=== PATIENT | male | born 1955 | race Caucasian/White ===

== ENCOUNTER → 2016-12-08 | Outpatient (CLI) | payer BC | END | disposition home or self-care (01) | CPT/HCPCS: 94060; 94726; 94729 ==

== ENCOUNTER 2016-12-29 17:32 | Emergency (ER) | payer BC ==
--- NOTE | 2016-12-29 17:44 | ED ---
Recheck HPI - General Chief Complaint: Recheck/Abnormal Lab/Rx Stated Complaint: Fb in throat Time Seen by Provider: 12/29/16 17:39 Source: patient, family, RN notes reviewed Mode of arrival: ambulatory Limitations: no limitations - History of Present Illness Initial Comments: Is a 61-year-old male with a prior history of difficulty swallowing he states he was eating a salad sandwich with liverwurst when something is stuck in his throat. He denies any trouble swallowing this time he states he can't clear anything. He is having no trouble breathing is talking without difficulty. He feels like his stomach at the top of his esophagus. MD Complaint: other - Related Data Home Medications Medication Instructions Recorded Confirmed Aspirin 81 mg PO DAILY 06/15/14 12/29/16 Lovastatin [Mevacor] 40 mg PO HS 06/15/14 12/29/16 Nitroglycerin Sl Tabs [Nitrostat] 0.4 mg SL Q5M PRN 06/15/14 12/29/16 metFORMIN HCL [Glucophage] 1,000 mg PO BID 06/15/14 12/29/16 Albuterol Sulfate [Proair Hfa] 1 - 2 puff INHALATION RT-Q6H PRN 12/29/16 Benzonatate [Tessalon Perles] 100 mg PO TID 12/29/16 12/29/16 Insulin Glargine,Hum.rec.anlog 10 unit SQ HS 12/29/16 12/29/16 [Toujeo Solostar] Losartan [Cozaar] 50 mg PO DAILY 12/29/16 12/29/16 Montelukast [Singulair] 10 mg PO HS 12/29/16 12/29/16 Sub-Q Insulin Device, 40 Unit [Vgo 1 dose SQ CONTINUOUS 12/29/16 12/29/16 40] Umeclidinium Brm/Vilanterol Tr 1 puff INHALATION RT-DAILY 12/29/16 12/29/16 [Anoro Ellipta 62.5-25 Mcg INH] Allergies Allergy/AdvReac Type Severity Reaction Status Date / Time adhesive Allergy Rash/Hives Verified 12/29/16 17:57 latex Allergy Unknown Verified 12/29/16 17:57 shellfish derived Allergy Rash/Hives Verified 12/29/16 17:57 Review of Systems ROS Statement: Those systems with pertinent positive or pertinent negative responses have been documented in the HPI. ROS Other: All systems not noted in ROS Statement are negative. Past Medical History Past Medical History: Chest Pain / Angina, Diabetes Mellitus, GERD/Reflux, GI Bleed, Hyperlipidemia, Hypertension, Myocardial Infarction ([place]), Musculoskeletal Disorder, Osteoarthritis (OA), Prostate Disorder, Thyroid Disorder Additional Past Medical History / Comment(s): Pt arrived by car with family to [facility] ER for c/o L sided chest pain-stabbing which is worse with movement and deep breath. Pt also had mild SOB. 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 STATES HAS HEMORRHOIDS-. INJURED RT SHOULDER AT WORK-still getting worked up for this problem. Last Myocardial Infarction Date:: 11/14/14 History of Any Multi-Drug Resistant Organisms: None Reported Past Surgical History: Heart Catheterization, Hernia Repair, Orthopedic Surgery Additional Past Surgical History / Comment(s): LEFT SHOULDER SURGERY, R shoulder arthroscopic, L groin surgery by dr. Cedeño 09/11. COLONOSCOPY. EGD. HEART CATH 07/07/2013-"normal" Past Anesthesia/Blood Transfusion Reactions: No Reported Reaction Additional Past Anesthesia/Blood Transfusion Reaction / Comment(s): Pt has never recieved blood. Past Psychological History: No Psychological Hx Reported Additional Psychological History / Comment(s): Pt lives at home with spouse. Pt lives in single level home. Pt is on workman comp for a R shoulder injury but still does light work 40 hrs a week. Pt drives a truck. He is normally is independent. Smoking Status: Former smoker Past Alcohol Use History: Occasional Past Drug Use History: None Reported - Past Family History Mother Family Medical History: Cancer Additional Family Medical History / Comment(s): LUNG CA Father Family Medical History: Cancer Additional Family Medical History / Comment(s): LUNG CA General Exam - General Exam Comments Initial Comments: This is a well-developed well-nourished awake alert oriented times 3 male Limitations: no limitations General appearance: anxious Head exam: Present: atraumatic, normocephalic, normal inspection Eye exam: Present: normal appearance, PERRL, EOMI. Absent: scleral icterus, conjunctival injection, periorbital swelling ENT exam: Present: normal exam, mucous membranes moist Neck exam: Present: normal inspection, other (No stridor JVD or bruits). Absent : tenderness, meningismus, lymphadenopathy Respiratory exam: Present: normal lung sounds bilaterally. Absent: respiratory distress, wheezes, rales, rhonchi, stridor Cardiovascular Exam: Present: regular rate, normal rhythm, normal heart sounds. Absent: systolic murmur, diastolic murmur, rubs, gallop, clicks GI/Abdominal exam: Present: soft, normal bowel sounds. Absent: distended, tenderness, guarding, rebound, rigid Extremities exam: Present: normal inspection, full ROM, normal capillary refill. Absent: tenderness, pedal edema, joint swelling, calf tenderness Back exam: Present: normal inspection Neurological exam: Present: alert, oriented X3, CN II-XII intact Psychiatric exam: Present: normal affect, normal mood Skin exam: Present: warm, dry, intact, normal color. Absent: rash Course Vital Signs 12/29/16 17:35 Temperature 97.9 F Pulse Rate 101 H Respiratory 18 Rate Blood Pressure 150/79 O2 Sat by Pulse 96 Oximetry - Reevaluation(s) Reevaluation #1: 12/29/16 18:24 Patient initially stated he had some relief after drinking hot water just before taking a GI cocktail he later then stated he felt like he still had something in his throat after becoming supine. Medical Decision Making - Medical Decision Making Patient started feeling better he did gargle some salt water he did expel whatever was causing the problem he feels about back to normal he will be discharged with follow-up with his doctor and return when necessary Disposition Clinical Impression: Foreign body in throat Disposition: HOME SELF-CARE Condition: Good Instructions: Foreign Body in Pharynx (ED)
[2016-12-29] MEDS ORDERED: MAG HYDROX/AL HYDROX/SIMETH 30 ML, HYOSCYAMINE ELIXIR 10 ML, CIMETIDINE HCL 300 MG, LID... PO STA ×4 (17:45)
[2016-12-29] MEDS ORDERED: METOCLOPRAMIDE 5 MG/ML 2 ML VIAL IVP STA (18:22)
[2016-12-29] MEDS ORDERED: SODIUM CHLORIDE 0.9% 1,000 ML IV STA (18:23)
[2016-12-29] MEDS ORDERED: GLUCAGON 1 MG/ML VIAL IVP STA (18:23)
[2016-12-29 19:18] VITALS: BP 153/74; PULSE 89; RESP 20; TEMP 98.5
== END 2016-12-29 19:20 | disposition home or self-care (01) ==
LOC: EC 17:32
DX: T17.228A Food in pharynx causing other injury, initial encounter (principal); E07.9 Disorder of thyroid, unspecified; I10 Essential (primary) hypertension; E78.5 Hyperlipidemia, unspecified; K21.9 Gastro-esophageal reflux disease without esophagitis; E11.9 Type 2 diabetes mellitus without complications; I25.2 Old myocardial infarction; Z98.61 Coronary angioplasty status; Z87.891 Personal history of nicotine dependence; Z79.82 Long term (current) use of aspirin; Z79.4 Long term (current) use of insulin; Z79.84 Long term (current) use of oral hypoglycemic drugs; Z79.51 Long term (current) use of inhaled steroids; Z79.899 Other long term (current) drug therapy; Z91.040 Latex allergy status
CPT/HCPCS: 99283

== ENCOUNTER → 2017-02-08 | Outpatient (CLI) | payer BC ==
--- NOTE | 2017-02-08 10:17 | FL ---
Barium swallow HISTORY: Dysphagia 1 minute 30 seconds fluoroscopy time Correlation to prior barium swallow 28 September 2016 Patient was given high density barium to drink. FINDINGS: Swallowing mechanism is normal. No abnormal collections of contrast evident. There is no ob struction to flow. No evident aspiration. No hiatal hernia. Gastroesophageal reflux is not evident du ring the course of the exam. IMPRESSION: No abnormality evident to account for patient's symptoms. Consider direct visualization, contrast enhanced neck CT for better evaluation
== END | disposition home or self-care (01) ==
LOC: RADFLWHC 09:14
PROVIDERS: ATTEND Otolaryngology
DX: R13.10 Dysphagia, unspecified (principal)
CPT/HCPCS: 74220

== ENCOUNTER → 2017-02-12 | Outpatient (CLI) | payer BC ==
[2017-02-12 16:25] LABS: Blood Urea Nitrogen 19 mg/dL (9-20); Non-African American GFR(MDRD) >60 (>60 ml/min/1.73 sqM)
--- NOTE | 2017-02-12 17:09 | CT ---
EXAMINATION TYPE: CT soft tissue neck wo/w con DATE OF EXAM: 02/12/2017 4:59 PM COMPARISON: Barium swallow 08 February 2017 HISTORY: Dysphagia x [address] DLP: 1033.80 mGycm Automated exposure control for dose reduction was used. CONTRAST: CT scan of the neck is performed following without and with IV Contrast, patient injected with 100 mL of Omnipaque 300. Axial images are obtained, coronal and sagittal reformatted images are reviewed. FINDINGS: Airway: No gross abnormality seen. Parotid/submandibular glands: No gross abnormality seen. Carotid/Vascular Structures: Unremarkable Osseous Structures: Degenerative disc changes are present within the visualized spine, spurring at th e C4-5, C5-6 and C6-7 levels causes minimal posterior impression on the cervical esophagus Other: No evident adenopathy. IMPRESSION: No abnormality evident to account for patient's symptoms.
== END ==
LOC: RADCTMAIN 15:40
PROVIDERS: ATTEND Otolaryngology
DX: R13.10 Dysphagia, unspecified (principal)
CPT/HCPCS: 82565; 84520; 70492; 36415; Q9967

== ENCOUNTER 2017-02-25 09:09 | Day surgery (SDC) | payer BC ==
[2017-02-22 12:16] VITALS: BMI 36.9
[~2017-02-25 09:09] MED LIST: LACTATED RINGERS 1,000 ML IV SCH
[2017-02-25 09:39] VITALS: TEMP 99
[2017-02-25] MEDS ORDERED: LACTATED RINGERS 1,000 ML IV ONE (09:54)
[2017-02-25] MEDS ORDERED: LIDOCAINE 1% 20 ML VIAL (10MG/ML) FOR IV START INTRADERMA ONE (09:55)
[2017-02-25] MEDS ORDERED: INSULIN LISPRO (humaLOG) 300 UNIT/3 ML VIAL SQ ONE (09:55)
[2017-02-25 09:58] LABS: Glucose,Whole Blood 268 mg/dL (75-99)
[2017-02-25] MEDS ORDERED: GLYCOPYRROLATE 0.2 MG/ML 2 ML VIAL ONE (10:05)
[2017-02-25] MEDS ORDERED: LIDOCAINE 1% INJ 10MG/ML (20 ML MDV) ONE (10:05)
[2017-02-25] MEDS ORDERED: PROPOFOL 10 MG/ML 20 ML VIAL IV ONE (10:05)
[2017-02-25] MEDS ORDERED: MIDAZOLAM 2 MG/2 ML VIAL ONE (10:05)
--- NOTE | 2017-02-25 10:29 | P.PCN ---
Date of Procedure: 02/25/17 Procedure(s) Performed: BRIEF HISTORY: Patient is a 61-year-old, pleasant, white male, scheduled for an upper endoscopy as part of evaluation of dysphagia to solids for the last 3 months duration. He often feels dysphagia in his throat area with solids and occasionally with soft diet also. She saw ENT physician and so far workup was negative according to the patient isn't scheduled for an upper endoscopy to rule out any esophageal stricture. PROCEDURE PERFORMED: Esophagogastroduodenoscopy with biopsy. PREOPERATIVE DIAGNOSIS: Dysphagia of 3 months duration. IV sedation per anesthesia. PROCEDURE: After informed consent was obtained, the patient was brought into the endoscopy unit. IV conscious sedation was administered by Anesthesia under continuous monitoring. Initially the Olympus GIF-140 video endoscope was inserted into the mouth. Esophagus intubated without any difficulty. It was gradually advanced into the stomach and duodenum and carefully examined. The bulb and the second part of the duodenum appeared normal. The scope at this time was withdrawn to the stomach, adequately insufflated with air, and upon careful examination, mucosa of the antrum, had mild gastritis and biopsies were done from this area. The body, cardia and the fundus appeared normal. The scope was then withdrawn into the esophagus. The GE junction was located at 39 cm from the incisors. The esophagus appeared normal. No evidence of esophageal stricture noted. Biopsies were done from the distal esophagus to rule out microscopic/eosinophilic esophagitis There were no erosions or ulcerations seen. The proximal cervical esophagus was carefully examined and no obvious stricture identified and the patient tolerated the procedure well. IMPRESSION: 1. Normal-appearing esophagus with no evidence of esophagitis, esophageal stricture. 2. Mild antral gastritis. RECOMMENDATIONS: The findings of this examination were discussed with the patient as well as his family. He was advised to follow with the biopsy results. He will continue with Nexium 40 mg daily and follow antireflux measures.
[2017-02-25 10:32] LABS: Glucose,Whole Blood 229 mg/dL (75-99)
[2017-02-25 11:03] VITALS: BP 137/85; PULSE 77; RESP 18
== END 2017-02-25 11:16 | disposition home or self-care (01) ==
LOC: ORWHC2ENDO 09:09
PROVIDERS: ATTEND Internal Medicine Gastroenterology
DX: K21.0 Gastro-esophageal reflux disease with esophagitis (principal); R13.10 Dysphagia, unspecified; K29.50 Unspecified chronic gastritis without bleeding; I10 Essential (primary) hypertension; E78.5 Hyperlipidemia, unspecified; J45.909 Unspecified asthma, uncomplicated; J44.9 Chronic obstructive pulmonary disease, unspecified; E11.9 Type 2 diabetes mellitus without complications; E07.9 Disorder of thyroid, unspecified; I25.2 Old myocardial infarction; Z87.891 Personal history of nicotine dependence; Z79.84 Long term (current) use of oral hypoglycemic drugs; Z79.4 Long term (current) use of insulin; Z79.899 Other long term (current) drug therapy
CPT/HCPCS: 88305; 88342; 43239; J2250; J2001; J2704

== ENCOUNTER → 2018-07-25 | Outpatient (CLI) | payer MEDICARE ==
--- NOTE | 2018-07-25 08:38 | CT ---
EXAMINATION TYPE: CT sinus wo con DATE OF EXAM: 07/25/2018 COMPARISON: 09/18/2016 HISTORY: 62-year-old male chronic sinus drainage. CT DLP: 667 mGycm Automated exposure control for dose reduction was used. TECHNIQUE: Noncontrast axial views of the paranasal sinuses were obtained. Coronal reconstructions pe rformed. FINDINGS: PARANASAL SINUSES: The bilateral maxillary sinuses and bilateral sphenoid sinuses are slightly small. Frontal sinuses ar e hypoplastic. There is mild mucosal thickening throughout the ethmoid air cells and bilateral maxill xiang sinuses. There is no air-fluid level. Reactive niyah- osteogenesis is not seen. There is no destruction of the osseous land of the paranasal sinuses. THE NASAL CAVITY: The osteomeatal complexes are patent. There is an undulating nasal septum. The imaged brain and orbits are normal in appearance. Small amount of trapped fluid in the inferior right mastoid air cells, questionable clinical signific ance. Correlate for any mastoid pain to exclude the possibility of mastoiditis. Reformatted images confirm above findings. IMPRESSION: 1. Similar small appearance to the bilateral maxillary and sphenoid sinuses, likely developmental. 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 2. Mild chronic ethmoid and maxillary sinus disease. 3. Undulating nasal septum.
--- NOTE | 2018-07-25 10:14 | XR ---
EXAMINATION TYPE: XR chest 2V DATE OF EXAM: 07/25/2018 COMPARISON: Prior chest x-ray 07/27/2016 HISTORY: Chronic sinusitis and productive cough for 2 months TECHNIQUE: Frontal and lateral views of the chest are obtained. FINDINGS: There is no focal air space opacity, pleural effusion, or pneumothorax seen. The cardiac silhouette size is stable. Prominent lung volumes could be indicative of COPD. Is bronchial wall th ickening. The osseous structures are intact. Postop changes are noted in right shoulder. IMPRESSION: Correlate for bronchitis, reactive airways disease.
== END | disposition home or self-care (01) ==
LOC: RADCTMAIN 08:05
PROVIDERS: ATTEND Otolaryngology
DX: J32.0 Chronic maxillary sinusitis (principal); J32.2 Chronic ethmoidal sinusitis; Q75.8 Other specified congenital malformations of skull and face bones
CPT/HCPCS: 70486; 71046

== ENCOUNTER 2019-08-19 15:17 | Emergency (ER) | payer MEDICARE ==
[2019-08-19 15:25] VITALS: BP 140/72; PULSE 76; RESP 20; TEMP 98
--- NOTE | 2019-08-19 15:51 | ED ---
Wound/Laceration HPI - General Chief Complaint: Wound/Laceration Stated Complaint: Leg laceration Time Seen by Provider: 08/19/19 15:27 Source: patient Mode of arrival: ambulatory Limitations: no limitations - History of Present Illness Initial Comments: Patient is a 64-year-old male presenting to the emergency Department with complaints of a small laceration on the left side of his knee that happened prior to arrival. Patient states he was trying to start his chain saw when it kicked back and hit him in the left knee. Patient states the wound is not very large however he cannot get it to stop bleeding. Patient states this happened approximately 2 hours ago. Patient denies being on blood thinners. Patient admits to tetanus vaccine approximately 5 years ago. Patient admits to full left knee range of motion. Patient's only complaint is the bleeding is not stopping. Patient has no other complaints at this time. Upon arrival to ER, vital signs are stable. - Related Data Home Medications Medication Instructions Recorded Confirmed Aspirin 162 mg PO DAILY 06/15/14 09/23/18 Lovastatin [Mevacor] 40 mg PO HS 06/15/14 09/23/18 Nitroglycerin Sl Tabs [Nitrostat] 0.4 mg SL Q5M PRN 06/15/14 09/23/18 metFORMIN HCL [Glucophage] 500 mg PO BID 06/15/14 09/23/18 Losartan [Cozaar] 100 mg PO QAM 12/29/16 09/23/18 Albuterol Inhaler [Ventolin Hfa 2 puff INHALATION Q6HR PRN 02/22/17 09/23/18 Inhaler] Cetirizine HCl [Zyrtec] 10 mg PO DAILY 02/22/17 09/23/18 Esomeprazole Magnesium [NexIUM 22.3 mg PO BID 02/22/17 09/23/18 24Hr] Insulin Glargine,Hum.rec.anlog 45 units SQ HS 02/22/17 09/23/18 [Tristonunallely Mueller] Levothyroxine Sodium [Levoxyl] 175 mcg PO QAM 02/22/17 09/23/18 Alfuzosin HCl [Uroxatral] 10 mg PO DAILY 08/30/18 09/23/18 INSULIN ASPART (NovoLOG) [NovoLOG 24 unit SQ AC-TID 08/30/18 09/23/18 (formulary)] Antibiotic(Unknown Name/Dose) 1 tab PO DAILY 09/23/18 09/23/18 Multivitamins, Thera [Multivitamin 1 tab PO DAILY 09/23/18 09/23/18 (formulary)] Allergies Allergy/AdvReac Type Severity Reaction Status Date / Time adhesive Allergy Rash/Hives Verified 08/19/19 15:25 shellfish derived Allergy Rash/Hives Verified 08/19/19 15:25 NSAIDS (Non-Steroidal AdvReac AVOIDS D/T Verified 08/19/19 15:25 Anti-Inflamma CAUSING GI BLEED Review of Systems ROS Statement: Those systems with pertinent positive or pertinent negative responses have been documented in the HPI. ROS Other: All systems not noted in ROS Statement are negative. Past Medical History Past Medical History: Chest Pain / Angina, COPD, Diabetes Mellitus, GERD/Reflux, GI Bleed, Hyperlipidemia, Hypertension, Myocardial Infarction ([place]), Musculoskeletal Disorder, Osteoarthritis (OA), Prostate Disorder, Thyroid Disorder Additional Past Medical History / Comment(s): SOB w/exertion. Hx stomach bleed from motrin, bilateral shoulder pain. Denies hx. of [place], states chest pain in past from GERD. Current cold, cough and flu. States was on Tamiflu, completed now. On Antibiotic currently. [facility] aware and will cancel if he's not better by next week. Last Myocardial Infarction Date:: 11/14/14 History of Any Multi-Drug Resistant Organisms: None Reported Past Surgical History: Heart Catheterization, Hernia Repair, Orthopedic Surgery Additional Past Surgical History / Comment(s): LEFT SHOULDER SURGERY, R shoulder arthroscopic, EGD,. COLONOSCOPY Past Anesthesia/Blood Transfusion Reactions: No Reported Reaction Additional Past Anesthesia/Blood Transfusion Reaction / Comment(s): Pt has never received blood. Past Psychological History: No Psychological Hx Reported Smoking Status: Former smoker Past Alcohol Use History: Occasional Past Drug Use History: None Reported - Past Family History Mother Family Medical History: Cancer Additional Family Medical History / Comment(s): LUNG CA Father Family Medical History: Cancer Additional Family Medical History / Comment(s): LUNG CA General Exam - General Exam Comments Initial Comments: GENERAL: Well-appearing, well-nourished and in no acute distress. HEAD: Atraumatic, normocephalic. EYES: Pupils equal round and reactive to light, extraocular movements intact, sclera anicteric, conjunctiva are normal. ENT: TMs normal, nares patent, oropharynx clear without exudates. Moist mucous membranes. NECK: Normal range of motion, supple without lymphadenopathy or JVD. LUNGS: Breath sounds clear to auscultation bilaterally and equal. No wheezes rales or rhonchi. HEART: Regular rate and rhythm without murmurs, rubs or gallops. ABDOMEN: Soft, nontender, normoactive bowel sounds. No guarding, no rebound. No masses appreciated. : Deferred EXTREMITIES: Full range of motion of his left knee. No pain with palpation of the left knee. Normal range of motion, no pitting or edema. No clubbing or cyanosis. NEUROLOGICAL: Cranial nerves II through XII grossly intact. Normal speech, normal gait. PSYCH: Normal mood, normal affect. SKIN: Warm, Dry, normal turgor, no rashes. There is a 0.5 cm laceration to the lateral aspect of the left knee. There is active bleeding. No surrounding erythema. There is mild bruising surrounding the wound. Limitations: no limitations Course Vital Signs 08/19/19 15:23 Temperature 98 F Pulse Rate 76 Respiratory 20 Rate Blood Pressure 140/72 O2 Sat by Pulse 99 Oximetry Procedures - Laceration Laceration #1 Consent Obtained: verbal consent Indication: laceration Site: other (Lateral aspect of the left knee.) Size (cm): 0 (0.5cm) Description: linear Depth: simple, single layer Amount (mls): 0 (No vital was used.) Pre-repair: irrigated extensively Type of Sutures: nylon Size of Sutures: 4-0 Number of Sutures: 1 Technique: simple, interrupted Patient Tolerated Procedure: well Additional Comments: No lidocaine was used as patient only needed one suture and he was in agreement with this plan. Medical Decision Making - Medical Decision Making Patient is a 64-year-old male presenting with a small laceration to the left knee, lateral aspect that happened 2 hours prior to arrival. Patient states she was trying to chest start his chain saw when it kicked back and hit him in the left knee. Patient denies any pain the left knee however he cannot get the laceration to stop bleeding. Patient denies being on blood thinners. On exam patient has a small 0.5 cm laceration to the lateral aspect the left knee. There is active bleeding at this time. Patient's wound was cleaned, 1, 4-0 suture was used to close the wound and bleeding has stopped. Topical antibiotic and a Band-Aid was applied. Patient's tetanus vaccine is up-to-date. Patient is stable for discharge at this time. Sutures need to be removed in 10-12 days. Return parameters were discussed with the patient he verbalizes understanding. Case discussed with Dr. Solomon. Disposition Clinical Impression: Laceration of left knee Disposition: HOME SELF-CARE Condition: Stable Instructions (If sedation given, give patient instructions): Care For Your Stitches (ED), Laceration (ED) Additional Instructions: Please return to the Emergency Department if symptoms worsen or any other concerns. Stitch needs to be removed in 10-12 days. Is patient prescribed a controlled substance at d/c from ED?: No Referrals: Juan Alberto Wills DO [Primary Care Provider] - 1-2 days
== END 2019-08-19 16:01 | disposition home or self-care (01) ==
LOC: EC 15:17
DX: S81.012A Laceration without foreign body, left knee, initial encounter (principal); E11.9 Type 2 diabetes mellitus without complications; I10 Essential (primary) hypertension; E78.5 Hyperlipidemia, unspecified; K21.9 Gastro-esophageal reflux disease without esophagitis; I25.2 Old myocardial infarction; J44.9 Chronic obstructive pulmonary disease, unspecified; E07.9 Disorder of thyroid, unspecified; Z79.4 Long term (current) use of insulin; Z79.890 Hormone replacement therapy; Z79.82 Long term (current) use of aspirin; Z79.899 Other long term (current) drug therapy; Z91.048 Other nonmedicinal substance allergy status; Z91.018 Allergy to other foods; Z88.6 Allergy status to analgesic agent; Z87.891 Personal history of nicotine dependence; Z95.5 Presence of coronary angioplasty implant and graft; W31.2XXA Contact with powered woodworking and forming machines, initial encounter
CPT/HCPCS: 12001; 99282